=== PATIENT | female | born 1975 | race Caucasian/White ===

== ENCOUNTER 2017-02-20 15:18 | Emergency (ER) | payer MEDICAID ==
[2017-02-20 15:24] VITALS: BP 142/89
[2017-02-20] MEDS ORDERED: ALPRAZolam 1 MG Tab PO ONE (15:50)
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
== END 2017-02-20 16:15 | disposition home or self-care (01) ==
LOC: JD.ED 15:18
DX: F41.9 Anxiety disorder, unspecified (principal); F32.9 Major depressive disorder, single episode, unspecified; F17.210 Nicotine dependence, cigarettes, uncomplicated; Z79.899 Other long term (current) drug therapy
CPT/HCPCS: 99284; A9270; 99283

== ENCOUNTER 2017-04-01 22:18 | Emergency (ER) | payer MEDICAID ==
[2017-04-01 22:25] VITALS: BP 153/116
[2017-04-01] MEDS ORDERED: ALPRAZolam 1 MG Tab PO ONE (22:54)
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
== END 2017-04-01 23:06 | disposition home or self-care (01) ==
LOC: JD.ED 22:18
DX: F41.9 Anxiety disorder, unspecified (principal); G43.909 Migraine, unspecified, not intractable, without status migrainosus; F17.210 Nicotine dependence, cigarettes, uncomplicated; Z79.899 Other long term (current) drug therapy
CPT/HCPCS: 99283; A9270

== ENCOUNTER 2020-09-05 19:04 | Emergency (ER) | payer MEDICAID ==
[2020-09-05 19:50] VITALS: BP 145/99; PULSE 81
--- NOTE | 2020-09-05 20:06 | EDM.PDOC ---
ED HPI GENERAL MEDICAL PROBLEM - General Chief Complaint: Lower Extremity Injury/Pain Stated Complaint: FOOT INJURY Time Seen by Provider: 09/05/20 19:57 Source of Information: Reports: Patient, RN Notes Reviewed History Limitations: Reports: No Limitations - History of Present Illness INITIAL COMMENTS - FREE TEXT/NARRATIVE: Patient is a 44-year-old female presenting to the emergency department with complaints of pain, swelling, ecchymosis to her left foot. She states earlier today, she was walking down some stairs and missed stepped. She is unsure exactly how she landed on her foot but she has been having pain since that time. She has been able to bear weight on the extremity, however it is painful. Denies any history of previous fractures to this foot. 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 Musculoskeletal History: Reports: Fracture Neurological History: Reports: Migraines Psychiatric History: Reports: Anxiety, Depression, Panic Attack, PTSD - Infectious Disease History Infectious Disease History: Reports: Chicken Pox - Past Surgical History HEENT Surgical History: Reports: BETSYIK Social & Family History - Tobacco Use Tobacco Use Status *Q: Current Every Day Tobacco User Years of Tobacco use: 20 Packs/Tins Daily: 0.5 - Caffeine Use Caffeine Use: Reports: Coffee - Recreational Drug Use Recreational Drug Use: No Review of Systems - Review of Systems Review Of Systems: See Below Constitutional: Reports: No Symptoms Eyes: Reports: No Symptoms Ears: Reports: No Symptoms Nose: Reports: No Symptoms Mouth/Throat: Reports: No Symptoms Respiratory: Reports: No Symptoms Cardiovascular: Reports: No Symptoms GI/Abdominal: Reports: No Symptoms Genitourinary: Reports: No Symptoms Musculoskeletal: Reports: Foot Pain Skin: Reports: No Symptoms Neurological: Reports: No Symptoms Psychiatric: Reports: No Symptoms ED EXAM, GENERAL - Physical Exam Exam: See Below General Appearance: Alert, WD/WN, No Apparent Distress Respiratory/Chest: No Respiratory Distress, Lungs Clear, Normal Breath Sounds, No Accessory Muscle Use, Chest Non-Tender Cardiovascular: Normal Peripheral Pulses, Regular Rate, Rhythm, No Edema, No Gallop, No JVD, No Murmur, No Rub Extremities: Other (ecchymosis and edema to the dorsomedial and ventromedial aspect of the left foot. No obvious defomity.) Neurological: Alert, Oriented, CN II-XII Intact, Normal Cognition, Normal Gait, Normal Reflexes, No Motor/Sensory Deficits Psychiatric: Normal Affect, Normal Mood Skin Exam: Warm, Dry, Intact, Normal Color, No Rash Course - Vital Signs Last Recorded V/S: Last Vital Signs Temp 97.8 F 09/05/20 19:47 Pulse 81 09/05/20 19:47 Resp 20 09/05/20 19:47 BP 145/99 H 09/05/20 19:47 Pulse Ox 98 09/05/20 19:47 - Re-Assessments/Exams Free Text/Narrative Re-Assessment/Exam: 09/05/20 20:54 X-ray of the left foot shows a slightyly displaced fracture of the proximal first metatarsal. Patient will be placed in a walking boot with crutches and instructions for nonweightbearing. Referral will be sent to Dr. Davis, orthopedist. I will provide her with a short prescription of Rhodes for pain. Discharge instructions as documented. Departure - Departure Time of Disposition: 20:55 Disposition: Home, Self-Care 01 Condition: Good Clinical Impression: Foot fracture, left Qualifiers: Encounter type: initial encounter Fracture type: closed Qualified Code(s): S92.902A - Unspecified fracture of left foot, initial encounter for closed fracture - Discharge Information *PRESCRIPTION DRUG MONITORING PROGRAM REVIEWED*: Yes *COPY OF PRESCRIPTION DRUG MONITORING REPORT IN PATIENT PATSY: No Instructions: Crutch Use, Adult, [id number] Referrals: Bob Davis MD [Physician] - Forms: ED Department Discharge Additional Instructions: You were seen in the emergency department today for pain and bruising to your left foot after mis-stepping on the stairs. X-rays were completed and show that you do have a fracture of your proximal first metatarsal. You have been provided with a walking boot. This should be worn at all times. You should be nonweightbearing with the crutches. Ice and elevate the extremity while at rest.. You may open the walking boot to apply ice to your foot intermittently. Commend routine Tylenol and ibuprofen for pain relief. For pain not relieved by these medications, a short course of Rhodes has been provided. Use this only as prescribed. Do not drive or work for 12 hours after taking the medication as it can be sedating. Recommend that you call to schedule an appointment with orthopedist, Dr. Davis, for evaluation. Return to the ER as needed. Sepsis Event Note (ED) - Evaluation Sepsis Screening Result: No Definite Risk
--- NOTE | 2020-09-06 13:11 | CR ---
Left foot: 4 views of the left foot were obtained. Comparison: No previous study. Findings: Osseous: Slight deformity noted within the base of the 1st metatarsal compatible with minimally displaced fracture. No additional fracture or other abnormality is appreciated. Soft tissues: Soft tissue swelling is noted. Impression: 1. Fracture involving the base of the 1st metatarsal with minimal displacement. 2. Soft tissue swelling. Diagnostic code #3
== END 2020-09-05 21:20 | disposition home or self-care (01) ==
LOC: JD.ED 19:04
DX: S92.312A Displaced fracture of first metatarsal bone, left foot, initial encounter for closed fracture (principal); F41.9 Anxiety disorder, unspecified; F32.9 Major depressive disorder, single episode, unspecified; F17.210 Nicotine dependence, cigarettes, uncomplicated; Z79.899 Other long term (current) drug therapy; W10.8XXA Fall (on) (from) other stairs and steps, initial encounter; Y93.01 Activity, walking, marching and hiking
CPT/HCPCS: 73630-26-LT; 73630-LT; 99283

== ENCOUNTER 2023-08-30 08:12 | Emergency (ER) | payer MEDICAID ==
[2023-08-30 08:33] VITALS: PULSE 107
[2023-08-30 09:26] LABS: BASOPHILS PERCENT AUTO 0.2 % (0.0-1.0); EOSINOPHILS PERCENT AUTO 0.4 % (0.0-6.0); HEMATOCRIT 34.4 % (37.0-47.0); IMMATURE GRAN ABSOLUTE AUTO 0.03 K/mm3 (0.00-0.05); IMMATURE GRAN PERCENT AUTO 0.6 % (0.0-0.4); LYMPHOCYTES ABSOLUTE AUTO 0.2 K/mm3 (1.0-4.8); LYMPHOCYTES PERCENT AUTO 4.3 % (24.0-44.0); MEAN CORPUSCULAR VOLUME 74.9 fl (83.0-99.0); MEAN PLATELET VOLUME 8.8 fl (9.4-12.3); MONOCYTES ABSOLUTE AUTO 0.2 K/mm3 (0.0-0.8); MONOCYTES PERCENT AUTO 4.5 % (0.0-8.0); NEUTROPHILS ABSOLUTE AUTO 4.2 K/mm3 (1.8-7.7); PLATELET COUNT,PLT 320 K/mm3 (150-400); RED BLOOD CELL COUNT 4.59 M/mm3 (4.10-5.30); WHITE BLOOD CELL COUNT,WBC 4.69 K/mm3 (3.9-11.3)
[2023-08-30 09:30] LABS: INFLUENZA A NAA NEGATIVE (NEGATIVE); RESPIRATORY SYNCYTIAL VIR NAA NEGATIVE (NEGATIVE)
[2023-08-30 09:31] LABS: A/G RATIO 0.9 (1-2); ALBUMIN 3.3 g/dl (3.4-5.0); ANION GAP 11.8 (5-15); BILIRUBIN TOTAL 0.2 mg/dL (0.2-1.0); BUN/CREATININE RATIO 4.5 (14-18); CALCIUM 9.1 mg/dL (8.5-10.1); CREATININE 1.1 mg/dL (0.55-1.02); EST CRCL DRUG DOSING (CG) 53.42 mL/min; POTASSIUM,K 2.8 mEq/L (3.5-5.1); PROTEIN TOTAL,TP 6.8 g/dl (6.4-8.2)
[2023-08-30 09:45] LABS: CORONAVIRUS COVID-19 NAA POSITIVE (NEGATIVE)
[2023-08-30] MEDS ORDERED: Lactated Ringers 1,000 ML IV ONE (09:46)
[2023-08-30] MEDS ORDERED: Ondansetron 4 MG/2 ML SDV IVPUSH ONE (09:47)
[2023-08-30] MEDS ORDERED: Lactated Ringers 1,000 ML IV SCH (10:00)
[2023-08-30 10:55] LABS: LACTIC ACID 1.7 mmol/L (0.4-2.0)
[2023-08-30] MEDS ORDERED: Potassium Chloride 20 MEQ Tab.ER PO ONE (11:37)
[2023-08-30] MEDS: Potassium Chloride 10 MEQ in Premix Bag 1 BAG IV SCH ×3 (12:07→16:38)
[2023-08-30 13:49] LABS: APPEARANCE,URINE CLEAR (Clear); BILIRUBIN,URINE NEGATIVE (Negative); COLOR,URINE LIGHT YELLOW (Yellow); GLUCOSE,URINE NEGATIVE (Negative); KETONES,URINE NEGATIVE (Negative); LEUKOCYTE ESTERASE,URINE NEGATIVE (Negative); NITRITE,URINE NEGATIVE (Negative); OCCULT BLOOD,URINE NEGATIVE (Negative); PROTEIN,URINE NEGATIVE (Negative); UROBILINOGEN,URINE 0.2 (0.2-1.0)
[2023-08-30] MEDS ORDERED: Acetaminophen 325 MG Tab PO ONE (15:32)
[2023-08-30] MEDS ORDERED: Magnesium Oxide 400 MG Tab PO ONE (16:38)
[2023-08-30] MEDS ORDERED: ALPRAZolam 1 MG Tab PO ONE (16:38)
[2023-08-30 18:40] VITALS: BP 130/81
[2023-08-31] MEDS ORDERED: Potassium Chloride 20 MEQ Tab.ER PO SCH (09:00)
== END 2023-08-30 18:10 | disposition home or self-care (01) ==
LOC: JD.ED 08:12
DX: U07.1 COVID-19 (principal); E87.6 Hypokalemia; E83.42 Hypomagnesemia; F17.210 Nicotine dependence, cigarettes, uncomplicated; Z79.899 Other long term (current) drug therapy
CPT/HCPCS: 0241U; 36415; 71045; 80053; 81003; 83605; 83735; 85025; 87040; 96361; 96365; 96366; 96375; 99284; A9270; J2405; J3480; J7120

== ENCOUNTER 2024-03-30 13:04 | Emergency (ER) | payer MEDICAID ==
[2024-03-30] MEDS: Albuterol/Ipratropium 3.0-0.5 MG/3 ML Neb Soln NEB ONE (14:07)
[2024-03-30 14:41] VITALS: BP 121/74; PULSE 98
== END 2024-03-30 14:44 | disposition home or self-care (01) ==
LOC: JD.ED 13:04
DX: J06.9 Acute upper respiratory infection, unspecified (principal); R05.9 Cough, unspecified; F17.210 Nicotine dependence, cigarettes, uncomplicated; Z86.16 Personal history of COVID-19; Z79.899 Other long term (current) drug therapy
CPT/HCPCS: 71046; 71046-26; 94640; 99285; J7620-GY